=== PATIENT | female | born 1945 | race Hispanic/Latino ===

== ENCOUNTER 2021-03-23 16:43 | Inpatient (IN) | payer OTHER ==
[~2021-03-23] VITALS: Ht 157.5 cm; Wt 65.6 kg
[2021-03-23] MEDS ORDERED: ATOR10TA69 PO (16:54)
[2021-03-23] MEDS ORDERED: LISI20TA24 PO (16:54)
[2021-03-23] MEDS ORDERED: PANTOPRAZOLE 40 MG/VIAL IVP SCH (17:00)
[2021-03-23] MEDS ORDERED: FAMOTIDINE 20MG VIAL IV SCH ×2 (17:00→20:30)
[2021-03-23 17:14] LABS: BASOPHILS % (AUTO) 0.2 % (0.0-5.0); EOSINOPHILS % (AUTO) 0.3 % (0.0-8.0); HEMATOCRIT 24.2 % (36-48); LYMPHOCYTES % (AUTO) 2.3 % (21.0-51.0); MEAN CORPUSCULAR HEMOGLOBIN 25.4 pg (27.0-33.0); MEAN CORPUSCULAR HGB CONC 31.4 g/dL (32.0-36.0); MEAN CORPUSCULAR VOLUME 80.9 fL (79-99); NEUTROPHILS % (AUTO) 88.9 % (40.0-77.0); NUCLEATED RED BLOOD CELLS 0.1 % (0.0-0.19); PLATELET COUNT (AUTO) 148 K/uL (130-400); RED BLOOD CELL COUNT(AUTO) 2.99 MIL/uL (4.00-5.50); RED CELL DISTRIBUTION WIDTH 18.6 % (11.0-15.5)
[2021-03-23 17:18] LABS: WHITE BLOOD COUNT (AUTO) 41.4 K/uL (4.8-10.8)
[2021-03-23] MEDS ORDERED: 0.9%NACL 1000ML 1,000 ML IV ONE ×2 (17:30→18:30)
[2021-03-23] MEDS ORDERED: INSULIN HUMULIN R 100 UNIT/ML 3ML SQ ONE (17:30)
[2021-03-23 17:37] LABS: BAND NEUTROPHILS % (MANUAL) 10 % (0-2); LYMPHOCYTES % (MANUAL) 4 % (22-44); MONOCYTES % (MANUAL) 3 % (2-9); SEGMENTED NEUTROPHILS % 83 % (40-70)
[2021-03-23 17:38] LABS: MAN.DIFF COMMENT-IMPRESSION MANUAL DIFFERENTIAL; PLATELET MORPHOLOGY COMMENT ADEQUATE
[2021-03-23 17:40] LABS: CREATININE 1.1 mg/dL (0.5-1.5); POTASSIUM 4.6 mmol/L (3.5-5.1)
[2021-03-23 17:44] LABS: ALBUMIN 1.3 g/dL (3.5-5.0); BILIRUBIN,TOTAL 1.2 mg/dL (0.2-1.0); CRP QUANTITATIVE 176.1 mg/L (0.00-9.0); TOTAL PROTEIN, SERUM 5.3 g/dL (6.0-8.3)
[2021-03-23] MEDS ORDERED: CEFTRIAXONE 1G VIAL IVP ONE (18:00)
[2021-03-23] MEDS ORDERED: AZITHROMYCIN 250 MG TABLET PO ONE (18:00)
[2021-03-23 18:26] LABS: INFLUENZA TYPE A NEGATIVE FOR TYPE A (NEG); INFLUENZA TYPE B NEGATIVE FOR TYPE B (NEG)
[2021-03-23] MEDS ORDERED: LACTATED RINGERS 1000ML 1,000 ML IV ONE (18:30)
[2021-03-23] MEDS ORDERED: ZOSYN 3.375GM +NS 50ML IV SCH (19:30)
[2021-03-23] MEDS ORDERED: GADOTERATE MEGLUMINE 10 MMOL/20 ML VIAL IV ONE (19:45)
[2021-03-23] MEDS ORDERED: ACETAMINOPHEN 325 MG TAB PO PRN (20:30)
[2021-03-23] MEDS ORDERED: ONDANSETRON 4MG INJ IVP PRN (20:30)
[2021-03-23] MEDS: ZOSYN 3.375GM +NS 50ML IV SCH (21:00)
[2021-03-23] MEDS: 0.9%NACL 1000ML 1,000 ML IV SCH (21:41)
[2021-03-24] MEDS ORDERED: 0.9%NACL 100ML 100 ML ONE ×2 (05:42→20:33)
[2021-03-24] MEDS: ZOSYN 3.375GM +NS 50ML IV SCH ×3 (05:48→20:34)
[2021-03-24 06:53] LABS: APPEARANCE,URINE CLEAR (CLEAR); BILIRUBIN,URINE NEGATIVE (NEGATIVE); COLOR,URINE YELLOW (YELLOW); GLUCOSE, URINE (UA) 100 mg/dL (NEGATIVE); KETONES,URINE NEGATIVE (NEGATIVE); LEUKOCYTE ESTERASE ,URINE MODERATE (NEGATIVE); NITRATE,URINE NEGATIVE (NEGATIVE); OCCULT BLOOD,URINE NEGATIVE (NEGATIVE); PH,URINE 5.5 (5.0-8.0); PROTEIN,URINE NEGATIVE (NEGATIVE); UROBILINOGEN,URINE 0.2 mg/dL (0.2-1.0)
[2021-03-24 07:02] LABS: BACTERIA,URINE Moderate /HPF (None Seen); RBC,URINE 0-1 /HPF (0-1); SQUAMOUS EPITHELIAL CELL,UR 0-2 /HPF (0-2)
[2021-03-24 07:29] LABS: HEMATOCRIT 25.2 % (36-48); MEAN CORPUSCULAR HEMOGLOBIN 25.2 pg (27.0-33.0); MEAN CORPUSCULAR HGB CONC 30.6 g/dL (32.0-36.0); MEAN CORPUSCULAR VOLUME 82.4 fL (79-99); NUCLEATED RED BLOOD CELLS 0.1 % (0.0-0.19); RED BLOOD CELL COUNT(AUTO) 3.06 MIL/uL (4.00-5.50); RED CELL DISTRIBUTION WIDTH 19.4 % (11.0-15.5)
[2021-03-24 07:30] LABS: WHITE BLOOD COUNT (AUTO) 43.5 K/uL (4.8-10.8)
[2021-03-24 07:51] LABS: ALANINE AMINOTRANSFERASE 65 U/L (12-78); ALBUMIN 1.3 g/dL (3.5-5.0); AMYLASE 9 U/L (25-115); ASPARTATE AMINOTRANSFERASE 54 U/L (10-37); BILIRUBIN,TOTAL 1.2 mg/dL (0.2-1.0); CARBON DIOXIDE 25 mmol/L (21-32); CHLORIDE 99 mmol/L (101-111); CREATININE 0.8 mg/dL (0.5-1.5); GLOMERULAR FILTR. RATE CALC 74 mL/min (>60); GLUCOSE,RANDOM 187 mg/dL (70-105); LIPASE < 50 U/L (114-286); SODIUM SERUM 129 mmol/L (136-145); TOTAL PROTEIN, SERUM 5.2 g/dL (6.0-8.3); UREA NITROGEN, BLOOD 30 mg/dL (7-18)
[2021-03-24] MEDS ORDERED: FENTANYL CITRATE PF 50 MCG/1 ML 2ML VIAL ONE (12:55)
[2021-03-24] MEDS ORDERED: MIDAZOLAM HCL 1 MG/ML 2ML VIAL ONE (12:55)
[2021-03-24 13:24] LABS: INR 1.43 (0.85-1.15); PROTHROMBIN TIME 15.1 SEC (9.6-11.6)
[2021-03-24 13:25] LABS: PARTIAL THROMBOPLASTIN TIME 27.7 SEC (26.3-35.5)
[2021-03-24] MEDS: 0.9%NACL 1000ML 1,000 ML IV SCH ×3 (13:29→20:52)
[2021-03-24] MEDS ORDERED: LIDOCAINE HCL MPF 1% 5ML VIAL ONE (17:03)
[2021-03-24] MEDS: ACETAMINOPHEN WITH CODEINE 1 TAB TAB PO PRN (18:15)
[2021-03-24] MEDS ORDERED: VANCOMYCIN 1G VIAL IVPB ONE (23:00)
[2021-03-24] MEDS ORDERED: VANCOMYCIN PROTOCOL PER PHARMACY IV SCH (23:00)
[2021-03-24] MEDS: MORPHINE 2 MG SYG IVP PRN (23:23)
[2021-03-24] MEDS ORDERED: VANCOMYCIN 1G/250ML KIT 250 ML IV ONE (23:30)
[2021-03-25] VITALS (7 sets, daily range): BP systolic 109–129; BP diastolic 61–66
[2021-03-25] MEDS: FLUCONAZOLE 400 MG/NS 200 ML 200 ML IV SCH ×2 (01:44→13:03)
[2021-03-25] MEDS: ZOSYN 3.375GM +NS 50ML IV SCH ×3 (04:51→20:12)
[2021-03-25 05:31] LABS: HEMATOCRIT 25.9 % (36-48); MEAN CORPUSCULAR HEMOGLOBIN 25.6 pg (27.0-33.0); MEAN CORPUSCULAR HGB CONC 30.1 g/dL (32.0-36.0); MEAN CORPUSCULAR VOLUME 84.9 fL (79-99); NUCLEATED RED BLOOD CELLS 0.1 % (0.0-0.19); PLATELET COUNT (AUTO) 130 K/uL (130-400); RED BLOOD CELL COUNT(AUTO) 3.05 MIL/uL (4.00-5.50); RED CELL DISTRIBUTION WIDTH 20.2 % (11.0-15.5)
[2021-03-25 05:36] LABS: WHITE BLOOD COUNT (AUTO) 32.8 K/uL (4.8-10.8)
[2021-03-25 05:53] LABS: CREATININE 0.8 mg/dL (0.5-1.5); PHOSPHORUS 3.9 mg/dL (2.5-4.9); POTASSIUM 3.9 mmol/L (3.5-5.1)
[2021-03-25 06:27] LABS: BAND NEUTROPHILS % (MANUAL) 21 % (0-2); LYMPHOCYTES % (MANUAL) 2 % (22-44); MAN.DIFF COMMENT-IMPRESSION MANUAL DIFFERENTIAL; METAMYELOCYTES % 2 % (0-0); MONOCYTES % (MANUAL) 2 % (2-9); SEGMENTED NEUTROPHILS % 73 % (40-70)
[2021-03-25 06:28] LABS: PLATELET MORPHOLOGY COMMENT ADEQUATE
[2021-03-25] MEDS: MIDODRINE HCL 5 MG TABLET PO SCH ×3 (09:00→20:12)
[2021-03-25] MEDS ORDERED: PNEUMOCOCCAL VACCINE POLYVALENT 0.5 ML/VIAL [PPV] SQ ONE (10:00)
[2021-03-25] MEDS ORDERED: VANCOMYCIN 750MG VIAL IVPB ONE (15:00)
[2021-03-25] MEDS ORDERED: 0.9% NACL 250ML 250 ML IV ONE (15:00)
[2021-03-25] MEDS ORDERED: PHENOL 177 ML BOTTLE PO PRN (20:00)
[2021-03-25] MEDS: 0.9%NACL 1000ML 1,000 ML IV SCH (20:12)
[2021-03-25] MEDS: MORPHINE 2 MG SYG IVP PRN (20:13)
[2021-03-25] MEDS: ACETAMINOPHEN WITH CODEINE 1 TAB TAB PO PRN (23:18)
[2021-03-26 04:00] VITALS: BP 106/51
[2021-03-26] MEDS: ZOSYN 3.375GM +NS 50ML IV SCH ×3 (04:22→22:22)
[2021-03-26] MEDS ORDERED: 0.9% NACL 250ML 250 ML ONE (05:18)
[2021-03-26] MEDS: VANCOMYCIN 500MG+NS 100ML 100 ML IV SCH ×2 (05:45→17:24)
[2021-03-26] MEDS: MIDODRINE HCL 5 MG TABLET PO SCH ×3 (07:57→22:22)
[2021-03-26] MEDS: FLUCONAZOLE 400 MG/NS 200 ML 200 ML IV SCH (07:57)
[2021-03-26 08:15] VITALS: BP 121/75
[2021-03-26 11:40] VITALS: BP 135/47
[2021-03-26 15:10] VITALS: BP 107/65
[2021-03-26] MEDS: 0.9%NACL 1000ML 1,000 ML IV SCH (16:05)
[2021-03-26 20:12] VITALS: BP 107/54
[2021-03-26] MEDS: MORPHINE 2 MG SYG IVP PRN (22:33)
[2021-03-27] VITALS (7 sets, daily range): BP systolic 117–129; BP diastolic 49–62
[2021-03-27] MEDS: ZOSYN 3.375GM +NS 50ML IV SCH ×3 (05:19→20:17)
[2021-03-27] MEDS: 0.9%NACL 1000ML 1,000 ML IV SCH ×2 (05:19→17:19)
[2021-03-27 05:48] LABS: BASOPHILS % (AUTO) 0.3 % (0.0-5.0); EOSINOPHILS % (AUTO) 0.5 % (0.0-8.0); HEMATOCRIT 27.4 % (36-48); LYMPHOCYTES % (AUTO) 3.5 % (21.0-51.0); MEAN CORPUSCULAR HEMOGLOBIN 25.8 pg (27.0-33.0); MEAN CORPUSCULAR HGB CONC 29.2 g/dL (32.0-36.0); MEAN CORPUSCULAR VOLUME 88.4 fL (79-99); MONOCYTES % (AUTO) 4.1 % (3.0-13.0); NEUTROPHILS % (AUTO) 87.9 % (40.0-77.0); NUCLEATED RED BLOOD CELLS 0.1 % (0.0-0.19); PLATELET COUNT (AUTO) 125 K/uL (130-400); RED CELL DISTRIBUTION WIDTH 22.3 % (11.0-15.5)
[2021-03-27] MEDS: VANCOMYCIN 500MG+NS 100ML 100 ML IV SCH (06:00)
[2021-03-27 06:01] LABS: WHITE BLOOD COUNT (AUTO) 46.5 K/uL (4.8-10.8)
[2021-03-27 06:04] LABS: CREATININE 1.4 mg/dL (0.5-1.5); POTASSIUM 4.7 mmol/L (3.5-5.1)
[2021-03-27 06:05] LABS: INR 1.37 (0.85-1.15); PROTHROMBIN TIME 14.5 SEC (9.6-11.6)
[2021-03-27 06:07] LABS: PARTIAL THROMBOPLASTIN TIME 31.4 SEC (26.3-35.5)
[2021-03-27 06:46] LABS: BAND NEUTROPHILS % (MANUAL) 1 % (0-2); EOSINOPHILS % (MANUAL) 2 % (1-6); LYMPHOCYTES % (MANUAL) 5 % (22-44); MONOCYTES % (MANUAL) 2 % (2-9); REACTIVE LYMPHOCYTES 2 % (0-0); SEGMENTED NEUTROPHILS % 88 % (40-70)
[2021-03-27 06:47] LABS: MAN.DIFF COMMENT-IMPRESSION MANUAL DIFFERENTIAL
[2021-03-27 06:50] LABS: PLATELET MORPHOLOGY COMMENT ADEQUATE
[2021-03-27] MEDS: FLUCONAZOLE 400 MG/NS 200 ML 200 ML IV SCH (08:19)
[2021-03-27] MEDS: MIDODRINE HCL 5 MG TABLET PO SCH ×3 (08:19→20:16)
[2021-03-27] MEDS: MORPHINE 2 MG SYG IVP PRN (20:17)
[2021-03-28] MEDS: ACETAMINOPHEN WITH CODEINE 1 TAB TAB PO PRN (02:10)
[2021-03-28 03:47] VITALS: BP 124/64
[2021-03-28] MEDS: ZOSYN 3.375GM +NS 50ML IV SCH ×3 (05:39→20:57)
[2021-03-28] MEDS: 0.9%NACL 1000ML 1,000 ML IV SCH ×2 (06:33→20:58)
[2021-03-28 06:38] VITALS: BP 139/55
[2021-03-28 07:40] VITALS: BP 139/55
[2021-03-28] MEDS: FLUCONAZOLE 400 MG/NS 200 ML 200 ML IV SCH (09:36)
[2021-03-28] MEDS: MIDODRINE HCL 5 MG TABLET PO SCH ×3 (09:37→20:58)
[2021-03-28] MEDS: MORPHINE 2 MG SYG IVP PRN ×2 (10:47→17:25)
[2021-03-28 11:10] VITALS: BP 120/62
[2021-03-28 15:20] VITALS: BP 133/58
[2021-03-28 20:00] VITALS: BP 128/72
[2021-03-28] MEDS: INSULIN HUMULIN R 100 UNIT/ML 3ML SQ SCH (21:00)
[2021-03-29] VITALS: BP 131/62
[2021-03-29 04:00] VITALS: BP 127/65
[2021-03-29] MEDS: ZOSYN 3.375GM +NS 50ML IV SCH ×3 (05:12→20:19)
[2021-03-29 06:36] LABS: BASOPHILS % (AUTO) 0.3 % (0.0-5.0); EOSINOPHILS % (AUTO) 0.1 % (0.0-8.0); LYMPHOCYTES % (AUTO) 3.2 % (21.0-51.0); MEAN CORPUSCULAR HEMOGLOBIN 25.7 pg (27.0-33.0); MEAN CORPUSCULAR HGB CONC 29.3 g/dL (32.0-36.0); MEAN CORPUSCULAR VOLUME 87.7 fL (79-99); MONOCYTES % (AUTO) 3.5 % (3.0-13.0); NEUTROPHILS % (AUTO) 89.3 % (40.0-77.0); NUCLEATED RED BLOOD CELLS 0.1 % (0.0-0.19); PLATELET COUNT (AUTO) 88 K/uL (130-400); RED BLOOD CELL COUNT(AUTO) 3.42 MIL/uL (4.00-5.50); RED CELL DISTRIBUTION WIDTH 23.1 % (11.0-15.5)
[2021-03-29 06:47] LABS: WHITE BLOOD COUNT (AUTO) 47.1 K/uL (4.8-10.8)
[2021-03-29 06:59] LABS: ALBUMIN 1.1 g/dL (3.5-5.0); BILIRUBIN,TOTAL 1.7 mg/dL (0.2-1.0); CREATININE 1.2 mg/dL (0.5-1.5); POTASSIUM 4.4 mmol/L (3.5-5.1); TOTAL PROTEIN, SERUM 5.1 g/dL (6.0-8.3)
[2021-03-29 07:24] LABS: LYMPHOCYTES % (MANUAL) 5 % (22-44); MAN.DIFF COMMENT-IMPRESSION MANUAL DIFFERENTIAL; MONOCYTES % (MANUAL) 2 % (2-9); PLATELET MORPHOLOGY COMMENT DECREASED; SEGMENTED NEUTROPHILS % 93 % (40-70)
[2021-03-29] MEDS: INSULIN HUMULIN R 100 UNIT/ML 3ML SQ SCH ×4 (07:30→20:23)
[2021-03-29 08:00] VITALS: BP 130/78
[2021-03-29] MEDS: PANTOPRAZOLE 40 MG/VIAL IVP SCH (09:43)
[2021-03-29] MEDS: FLUCONAZOLE 400 MG/NS 200 ML 200 ML IV SCH (09:44)
[2021-03-29] MEDS: MIDODRINE HCL 5 MG TABLET PO SCH ×3 (09:44→20:20)
[2021-03-29] MEDS: 0.9%NACL 1000ML 1,000 ML IV SCH ×2 (09:50→23:10)
[2021-03-29] MEDS ORDERED: VANCOMYCIN 1G/250ML KIT 250 ML IV SCH (10:00)
[2021-03-29 12:00] VITALS: BP_SYST 128; BP_SYST 147; BP_DIAS 60; BP_DIAS 77
[2021-03-29] MEDS: ACETAMINOPHEN WITH CODEINE 1 TAB TAB PO PRN (15:56)
[2021-03-29 16:00] VITALS: BP 136/69
[2021-03-30] VITALS: BP 85/47
[2021-03-30 04:00] VITALS: BP 57/34
[2021-03-30] MEDS: ZOSYN 3.375GM +NS 50ML IV SCH ×2 (05:10→14:14)
[2021-03-30] MEDS: INSULIN HUMULIN R 100 UNIT/ML 3ML SQ SCH ×2 (06:48→11:30)
[2021-03-30 07:26] LABS: BILIRUBIN,TOTAL 1.1 mg/dL (0.2-1.0); CHLORIDE 118 mmol/L (101-111); CREATININE 1.2 mg/dL (0.5-1.5); GLOMERULAR FILTR. RATE CALC 47 mL/min (>60); GLUCOSE,RANDOM 75 mg/dL (70-105); POTASSIUM 4.1 mmol/L (3.5-5.1); SODIUM SERUM 147 mmol/L (136-145); TOTAL PROTEIN, SERUM 2.7 g/dL (6.0-8.3); UREA NITROGEN, BLOOD 44 mg/dL (7-18)
[2021-03-30 07:30] LABS: ALBUMIN < 0.6 g/dL (3.5-5.0)
[2021-03-30 07:31] LABS: BASOPHILS % (AUTO) 0.2 % (0.0-5.0); EOSINOPHILS % (AUTO) 0.1 % (0.0-8.0); HEMATOCRIT 29.2 % (36-48); LYMPHOCYTES % (AUTO) 3.5 % (21.0-51.0); MEAN CORPUSCULAR HGB CONC 28.4 g/dL (32.0-36.0); MEAN CORPUSCULAR VOLUME 95.1 fL (79-99); MONOCYTES % (AUTO) 3.3 % (3.0-13.0); NUCLEATED RED BLOOD CELLS 0.8 % (0.0-0.19); PLATELET COUNT (AUTO) 72 K/uL (130-400); RED BLOOD CELL COUNT(AUTO) 3.07 MIL/uL (4.00-5.50); RED CELL DISTRIBUTION WIDTH 25.6 % (11.0-15.5)
[2021-03-30 07:32] LABS: ALANINE AMINOTRANSFERASE 625 U/L (12-78); ASPARTATE AMINOTRANSFERASE 1767 U/L (10-37); CARBON DIOXIDE 5 mmol/L (21-32)
[2021-03-30 07:32] LABS: WHITE BLOOD COUNT (AUTO) 33.3 K/uL (4.8-10.8)
[2021-03-30 07:43] LABS: INR 2.06 (0.85-1.15)
[2021-03-30 07:44] LABS: PARTIAL THROMBOPLASTIN TIME 44.1 SEC (26.3-35.5)
[2021-03-30 08:00] VITALS: BP 73/39
[2021-03-30 08:05] LABS: BAND NEUTROPHILS % (MANUAL) 3 % (0-2); LYMPHOCYTES % (MANUAL) 2 % (22-44); MAN.DIFF COMMENT-IMPRESSION MANUAL DIFFERENTIAL; MONOCYTES % (MANUAL) 1 % (2-9); PLATELET MORPHOLOGY COMMENT DECREASED; SEGMENTED NEUTROPHILS % 94 % (40-70)
[2021-03-30] MEDS: MIDODRINE HCL 5 MG TABLET PO SCH ×2 (09:20→14:14)
[2021-03-30] MEDS: PANTOPRAZOLE 40 MG/VIAL IVP SCH (09:20)
[2021-03-30] MEDS: FLUCONAZOLE 400 MG/NS 200 ML 200 ML IV SCH (09:20)
[2021-03-30] MEDS: ACETAMINOPHEN WITH CODEINE 1 TAB TAB PO PRN ×3 (09:37→16:25)
[2021-03-30] MEDS ORDERED: ALBUMIN (HUMAN) 25% 100 ML IV SCH (10:00)
[2021-03-30 12:00] VITALS: BP 77/46
[2021-03-30] MEDS ORDERED: ALBUMIN (HUMAN) 5% 500 ML IV SCH (14:30)
[2021-03-30] MEDS ORDERED: PHARMACY COMMUNICATION MISC SCH (15:00)
[2021-03-30] MEDS ORDERED: VANCOMYCIN PROTOCOL PER PHARMACY IV SCH (15:00)
[2021-03-30] MEDS ORDERED: MEROPENEM 1 GM VIAL IVP SCH (15:00)
[2021-03-30 16:00] VITALS: BP 146/73
[2021-03-30] MEDS ORDERED: VANCOMYCIN 1G/250ML KIT 250 ML IV SCH (16:00)
[2021-03-30] MEDS ORDERED: ARTIFICAL TEARS SOL 15 ML OU PRN (16:30)
[2021-03-30] MEDS ORDERED: ACETAMINOPHEN 325 MG TAB PO PRN (16:30)
[2021-03-30] MEDS ORDERED: ONDANSETRON 4MG TABLET PO PRN (16:30)
[2021-03-30] MEDS ORDERED: LORAZEPAM 2 MG/ML 1 ML VIAL IM PRN (16:30)
[2021-03-30] MEDS ORDERED: ACETAMINOPHEN 650 MG SUPPOSITORY RC PRN (16:30)
[2021-03-30] MEDS: MORPHINE 2 MG SYG IVP PRN (21:10)
[2021-03-31] MEDS: MORPHINE 2 MG SYG IVP PRN (01:30)
== END 2021-03-31 02:25 | DRG 871 ==
LOC: EDH 16:43 → EDHIP 19:10 → 4BH 03-24 23:18
PROVIDERS: ADMIT Internal Medicine; ATTEND Internal Medicine
PROC: 0F9430Z Drainage of Gallbladder with Drainage Device, Percutaneous Approach (ICD-10-PCS; principal; 2021-03-24)
DX: A41.9 Sepsis, unspecified organism (principal); U07.1 COVID-19; K65.1 Peritoneal abscess; C78.7 Secondary malignant neoplasm of liver and intrahepatic bile duct; R64 Cachexia; E87.1 Hypo-osmolality and hyponatremia; N17.9 Acute kidney failure, unspecified; E78.5 Hyperlipidemia, unspecified; I10 Essential (primary) hypertension; E78.00 Pure hypercholesterolemia, unspecified; R62.7 Adult failure to thrive; D64.9 Anemia, unspecified; D69.6 Thrombocytopenia, unspecified; Z66 Do not resuscitate; Z68.26 Body mass index [BMI] 26.0-26.9, adult; Z51.5 Encounter for palliative care; Z79.2 Long term (current) use of antibiotics; Z88.8 Allergy status to other drugs, medicaments and biological substances
CPT/HCPCS: 10030; 36415; 70450; 71045; 72197; 74176; 74183; 76942; 80048; 80053; 80202; 81001; 82010; 82150; 82270; 82330; 82378; 82948; 83605; 83690; 83735; 84100; 84145; 84484; 85018; 85025; 85027; 85610; 85730; 86140; 86316; 86850; 86900; 86901; 87040; 87071; 87077; 87088; 87186; 87205; 87635; 87804; 87880; 93005; C1729; C9113; C9803; G0378; J0696; J1450; J1815; J2250; J2405; J2543; J3010; J3370; J3490; J7030; J7050; P9046